=== PATIENT | male | born 1945 | race Caucasian/White ===

== ENCOUNTER → 2017-01-19 | Outpatient (CLI) | payer MEDICARE, BC ==
[2017-01-19 16:41] LABS: BASOPHIL % 0.6 %; EOSINOPHIL # 0.1 K/uL (0.0-0.5); EOSINOPHIL % 1.2 %; HEMATOCRIT 39.6 % (37.0-53.0); HEMOGLOBIN 12.8 g/dL (11.0-16.0); IMMATURE GRANULOCYTE % 0.3 %; LYMPHOCYTE # 1.8 K/uL (0.8-4.0); LYMPHOCYTE % 26.9 %; MCH 26.3 pg (27.0-34.0); MCHC 32.3 gm/dL (32.0-36.5); MCV 81.5 fl (83.0-98.0); MONOCYTE # 0.7 K/uL (0.0-1.0); MONOCYTE % 10.1 %; MPV 10.8 fl (9.4-12.4); NEUTROPHIL % 60.9 %; NRBC % 0 /100WBC (0-0.00); PLATELET COUNT 386 K/uL (150-450); RBC 4.86 M/uL (3.50-5.50); WBC 6.6 K/uL (4.0-11.0)
[2017-01-19 17:01] LABS: ALBUMIN 3.5 gm/dL (3.5-5.0); ANION GAP 10.3 (10.0-19.0); CALCIUM 8.6 mg/dL (8.5-10.5); CREATININE 1.1 mg/dL (0.6-1.3); POTASSIUM 4.3 mMol/L (3.7-5.1); TOTAL BILIRUBIN 0.4 mg/dL (0.0-1.5); TOTAL PROTEIN 6.5 g/dL (6.0-8.4)
== END ==
LOC: LNHI 16:32
PROVIDERS: Internal Medicine Cardiovascular Disease
DX: E78.2 Mixed hyperlipidemia (principal); I25.10 Atherosclerotic heart disease of native coronary artery without angina pectoris; I71.4 Abdominal aortic aneurysm, without rupture